=== PATIENT | female | born 1945 | race Caucasian/White ===

== ENCOUNTER 2017-04-12 10:29 | Observation (INO) | payer MEDICARE ==
--- NOTE | ~2017-04-12 | HP ---
History And Physical [place] [id number] [facility] [place]. [address] NAME: BUD PINTO : [id number] STATUS : ADM Klaudia PAT#: [id number] AGE: 71 ADM/REG DATE : 04/12/17 MR#: [id number] REPORT SERV DATE: 04/12/17 DICTATED BY: MIGUEL NIEVES DATE: 04/12/17 REPORT STATUS : Draft TRANSCRIBED BY: MODL DATE: 04/12/17 DATE OF ADMISSION: 04/12/2017 CHIEF COMPLAINT: Chest pain. HISTORY OF PRESENT ILLNESS: Ms. Pinto is a 71-year-old woman with no significant past cardiac history. She has no history of hypertension, hypercholesterolemia, or thrombotic disease. She had a fairly severe episode of chest pain on Wednesday around the time she was getting off a plane from [place]. She did not make too much of this pain because it was relatively short lived. She felt well yesterday and then this morning, awoke with fairly severe sharp mid substernal chest discomfort. There was a pleuritic component. It is worse when she takes in a deep breath. She has not had any syncope or presyncope. No palpitations. The pain is in her left chest and epigastric region, although she says it feels different than previous reflux disease. PAST MEDICAL HISTORY: 1. Gastroesophageal reflux disease. 2. Status post appendectomy. 3. Status post cholecystectomy. ALLERGIES: CODEINE, CLINDAMYCIN, AND CIPROFLOXACIN. MEDICATIONS: Include vitamin D, glucosamine, Boniva, lutein, red yeast rice, multivitamin, omega-3 fatty acid, Prilosec 20 mg daily, CoQ10, and calcium. SOCIAL HISTORY: She does not smoke or drink alcohol. FAMILY HISTORY: There is no family history of early coronary artery disease. REVIEW OF SYSTEMS: A complete review of systems was obtained, which is negative in detail, except as mentioned above in the HPI. PHYSICAL EXAMINATION: VITAL SIGNS: Blood pressure on presentation 179/83, heart rate of 80, respiratory rate of 18. GENERAL: Comfortable, in no acute distress. HEENT: Anicteric. No xanthelasma. Lips without cyanosis. NECK: No JVD. Carotids 2+ and symmetric. No carotid bruits. LUNGS: CTA bilaterally. No wheezes or rhonchi. No accessory muscle use. COR: RRR. Normally placed PMI. Normal S1 and S2. No murmurs, rubs, or gallops. ABD: Soft, nontender, nondistended. Normal bowel sounds. No abdominal bruits. EXT: No clubbing, cyanosis, or edema. 2+ and symmetric distal pulses. SKIN: Warm and dry. No venous stasis changes. MS: No kyphosis. NEURO/PSYCH: Oriented x3. No anxiety or depression. History And Physical [address] [address] NAME: BUD PINTO : 43 STATUS : ADM Klaudia PAT#: [id number] AGE: 71 ADM/REG DATE : 04/12/17 MR#: [id number] REPORT SERV DATE: 04/12/17 DICTATED BY: MIGUEL NIEVES DATE: 04/12/17 REPORT STATUS : Draft TRANSCRIBED BY: ALE DATE: 04/12/17 LABORATORY STUDIES: White count of 5.8, hematocrit of 42, platelets of 243. Potassium of 4.3, creatinine of 0.74. Troponin of less than 0.02. INR 1.0. EK-lead EKG shows sinus rhythm at 80 beats per minute. There are nonspecific T-wave abnormalities noted. No Q-waves. IMPRESSION: Ms. Pinto is a 71-year-old woman without significant past medical history, who presents with fairly severe sharp midsternal pleuritic chest pain a couple of days after a plane flight from [place]. I have recommended a chest CT angiogram to exclude the possibility of pulmonary embolus or aortic dissection. We will cycle cardiac enzymes and consider a stress test in the morning. She will be admitted to telemetry monitoring and observation status. WW/ALE Miguel Nieves M.D. / [id number] CC: DALTON Valadez M.D.
[~2017-04-12 10:29] MED LIST: CALTRA600D PO; CO Q10 PO; COSAMIN DS1 TAB PO; FLAG500TAB PO; LUTEIN1 CAP PO; MULTIVITAMI1 PO; NORCO1 TAB PO; PRILO PO; PROMEGA PO
[2017-04-12 10:35] LABS: BASOPHILS 0.2 %; BASOPHILS ABSOLUTE 0.01 10/3/uL (0.0-0.16); EOSINOPHILS ABSOLUTE 0.06 10/3/uL (0.0-0.53); ER CBC TAT 0 Hrs 14 Mins; HEMATOCRIT 42.1 % (36.0-48.0); HEMOGLOBIN 14.5 g/dL (12.0-16.0); LYMPHOCYTES ABSOLUTE 0.98 10/3/uL (0.67-4.30); MANUAL DIFF NO %; MEAN CORPUS HGB CONC 34.4 g/dL (32.0-36.0); MEAN CORPUSCULAR HEMOGLOB 32.2 pg (26.0-34.0); MEAN CORPUSCULAR VOLUME 93.3 fL (80-100); MEAN PLATELET VOLUME 11.6 fL (9.2-13.0); MONOCYTES 5.4 %; MONOCYTES ABSOLUTE 0.31 10/3/uL (0.21-1.20); NEUTROPHILS 76.4 %; NEUTROPHILS ABSOLUTE 4.39 10/3/uL (2.02-8.40); PLATELET COUNT 243 10/3/uL (150-400); RED CELL COUNT 4.51 10/6/uL (4.0-5.6); WHITE BLOOD CELLS 5.8 10/3/uL (4.5-10.5)
[2017-04-12 10:43] LABS: PARTIAL THROMBO TIME 29.7 SEC (22.5-37.2)
[2017-04-12 10:55] LABS: BUN (BLOOD UREA NITROGEN) 18 MG/DL (6-23); CALCIUM, SERUM 9.7 MG/DL (8.5-10.4); CHLORIDE, SERUM 108 MMOL/L (96-112); CO2 (CARBON DIOXIDE) 29 MMOL/L (24-34); CREATININE 0.74 MG/DL (0.55-1.02); GFR AFRICAN AMERICAN 94 ML/MIN (>=60); GFR NON AFRICAN AMERICAN 81 ML/MIN (>=60); GLUCOSE, SERUM 93 MG/DL (60-99); POTASSIUM, SERUM 4.3 MMOL/L (3.5-5.3); SODIUM, SERUM 141 MMOL/L (135-148); TROPONIN I <0.02 NG/ML (<0.05)
[2017-04-12 10:56] LABS: CHEST PAIN PROFILE TAT 0 Hrs 34 Mins
[2017-04-12] MEDS ORDERED: BONIVA150 MG PO (12:14)
[2017-04-12] MEDS ORDERED: VITAMIN D31000 UNIT PO (12:16)
[2017-04-12] MEDS ORDERED: RED YEAS1 PO (12:17)
[2017-04-12] MEDS ORDERED: CALCIUM SUPPLEMENT PO (12:19)
[2017-04-13 06:52] LABS: BASOPHILS 0.3 %; BASOPHILS ABSOLUTE 0.01 10/3/uL (0.0-0.16); EOSINOPHILS 2.5 %; EOSINOPHILS ABSOLUTE 0.09 10/3/uL (0.0-0.53); HEMATOCRIT 37.9 % (36.0-48.0); HEMOGLOBIN 13.1 g/dL (12.0-16.0); IMMATURE GRANULOCYTES 0.3 %; IMMATURE GRANULOCYTES ABSOLUTE 0.01 10/3/uL (0.0-0.11); LYMPHOCYTES 33.9 %; LYMPHOCYTES ABSOLUTE 1.22 10/3/uL (0.67-4.30); MEAN CORPUS HGB CONC 34.6 g/dL (32.0-36.0); MEAN CORPUSCULAR HEMOGLOB 32.3 pg (26.0-34.0); MEAN CORPUSCULAR VOLUME 93.3 fL (80-100); MONOCYTES 10.8 %; MONOCYTES ABSOLUTE 0.39 10/3/uL (0.21-1.20); NEUTROPHILS 52.2 %; NEUTROPHILS ABSOLUTE 1.88 10/3/uL (2.02-8.40); PLATELET COUNT 212 10/3/uL (150-400); RBC DISTRIBUTION WIDTH 12.9 % (12.0-16.0); RED CELL COUNT 4.06 10/6/uL (4.0-5.6); WHITE BLOOD CELLS 3.6 10/3/uL (4.5-10.5)
[2017-04-13 06:53] LABS: MANUAL DIFF NO %
[2017-04-13 07:10] LABS: CHOL/HDL RATIO(NOT ORDER) 2.2 (0-5)
== END 2017-04-13 12:10 | disposition home or self-care (01) ==
LOC: ER 10:29 → 5NO 13:32
PROVIDERS: Internal Medicine Cardiovascular Disease; Physician Assistant
DX: R07.2 Precordial pain (principal); K21.9 Gastro-esophageal reflux disease without esophagitis; Z90.49 Acquired absence of other specified parts of digestive tract; Z88.5 Allergy status to narcotic agent; Z88.1 Allergy status to other antibiotic agents
CPT/HCPCS: 71010; 71275; 78452; 80048; 80061; 83735; 84460; 84484; 85025; 85610; 85730; 93005; 93017; 96372; 99285; A9270-GY; A9502; G0378; Q9967